=== PATIENT | female | born 1990 | race African-American/Black ===

== ENCOUNTER 2017-12-25 08:46 | Emergency (ER) | payer MEDICAID ==
[~2017-12-25] VITALS: Ht 162.6 cm; Wt 49.0 kg
[~2017-12-25 08:46] MED LIST: IBUP-232 PO
[2017-12-25 08:49] VITALS: BP 103/59; PULSE 86; RESP 13; TEMP 98.7; O2SAT 100
[2017-12-25 10:50] LABS: BILIRUBIN, URINE NEG (NEG); BLOOD, URINE NEG (NEG); GLUCOSE,URINE NEG (NEG); KETONE, URINE NEG (NEG); MUCUS URINE FEW /lpf (OCC); NITRITE,URINE NEG (NEG); PH, URINE 6.5 (5.0-8.5); SQUAMOUS EPITHELIAL CELL URINE 1 /hpf (0-5); URINE COLOR YELLOW (YELLW/STRAW); URINE LEUKOCYTE ESTERASE NEG (NEG)
--- NOTE | 2017-12-25 10:56 | PD ---
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 Her last menstrual cycle was about a month ago. She denies any vomiting, fevers, chills or other symptoms. She says she has had one sexual partner in the past 6 months. PFSH Past Medical History Diminished Hearing: No ?: Not LMP: 11/25/17 : 5 Para: 5 Past Surgical History Section: Yes (X1) Social History Alcohol Use: No Tobacco Use: No Substance Use: No Allergies-Medications (Allergen,Severity, Reaction): Coded Allergies: amoxicillin (Unverified Allergy, Severe, 07/08/17) penicillin G (Unverified Allergy, Severe, "BREATHING", 07/08/17) ciprofloxacin (Unverified Allergy, Unknown, 07/08/17) Reported Meds & Prescriptions Reported Meds & Active Scripts Active Ibuprofen 600 Mg Tab 600 Mg PO Q6H PRN Review of Systems Except as stated in HPI: all other systems reviewed are Neg Physical Exam Narrative GENERAL:Well appearing, no acute distress SKIN: Focused skin assessment warm and dry. HEAD: Atraumatic. Normocephalic. EYES: Pupils equal and round. No injection or drainage. ENT: Moist mucous membranes NECK: Trachea midline. CARDIOVASCULAR: Regular rate and rhythm. No murmur appreciated. RESPIRATORY: Clear to auscultation. Breath sounds equal bilaterally. GASTROINTESTINAL: Abdomen soft, non-tender, nondistended. MUSCULOSKELETAL: No obvious deformities. 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 NEUROLOGICAL: Awake and alert. No obvious cranial nerve deficits. Moving all extremities. PSYCHIATRIC: Appropriate mood and affect; insight and judgment normal. Data Data Last Documented VS Vital Signs Date Time Temp Pulse Resp B/P (MAP) Pulse Ox O2 Delivery O2 Flow Rate FiO2 12/25/17 08:49 98.7 86 13 103/59 (74) 100 Orders Orders Urinalysis - C+S If Indicated (12/25/17 09:21) Gc And Chlamydia Pcr (12/25/17 09:21) Wet Prep Profile (12/25/17 09:21) Ed Urine Pregnancytest Poc (12/25/17 09:21) Labs Laboratory Tests Test 12/25/17 10:10 Urine Color YELLOW Urine Turbidity CLEAR Urine pH 6.5 Urine Specific [place] 1.024 Urine Protein NEG mg/dL Urine Glucose (UA) NEG mg/dL Urine Ketones NEG mg/dL Urine Occult Blood NEG Urine Nitrite NEG Urine Bilirubin NEG Urine Urobilinogen LESS THAN 2.0 MG/DL Urine Leukocyte Esterase NEG Urine RBC 1 /hpf Urine WBC 1 /hpf Urine Squamous Epithelial Cells 1 /hpf Urine Mucus FEW /lpf Microscopic Urinalysis Comment CULT NOT INDICATED Clue Cells (Wet Prep) NONE SEEN Vaginal Trichomonas (Wet Prep) NONE SEEN Vaginal Yeast (Wet Prep) NONE SEEN MDM Medical Decision Making Medical Screen Exam Complete: Yes Emergency Medical Condition: Yes Interpretation(s) Afebrile, no tachycardia, normotensive Nhlos-kg-clcb is negative Urinalysis is negative for infection Wet prep is negative Differential Diagnosis Menstrual bleeding, , bacterial vaginosis, trichomonas Narrative Course This is a 27-year-old female who presents to the emergency department with some lower abdominal pain and brown discharge. On she appears to have some dark brown blood in the vault consistent with her menstrual cycle. test was checked and was negative, urinalysis and wet prep are reassuring. I think the patient can be discharged home she has a benign exam otherwise. Diagnosis Primary Impression: Abnormal menses Referrals: [facility] Patient Instructions: General Instructions Additional Instructions: If you develop severe or worsening abdominal pain, fever>100.4, persistent vomiting or inability to eat or drink return to the emergency department immediately. Follow up with your primary care physician in 1-2 days for a check-up. Med/Other Pt SpecificInfo: No Change to Meds Disposition: 01 DISCHARGE HOME Condition: Stable Ekaterina Baeza MD Dec 25, 2017 10:56
[2017-12-25 11:05] VITALS: BP 108/56
== END 2017-12-25 11:25 | disposition home or self-care (01) ==
LOC: NEPD 08:46
DX: N92.6 Irregular menstruation, unspecified (principal); Z88.1 Allergy status to other antibiotic agents; Z88.0 Allergy status to penicillin
CPT/HCPCS: 81001; 84703; 87210; 87491; 87591; 99283